=== PATIENT | female | born 1965 | race Caucasian/White ===

== ENCOUNTER 2018-03-04 12:08 | Day surgery (SDC) | payer BC ==
[~2018-03-04 12:08] MED LIST: Buffered Lidocaine 0.9% SYRIN* 5 ML/SYR SYRINGE INTRADERM ONE; Dexamethasone TAB* 4 MG PO ONE; Famotidine IV* 10 MG/ML 2 ML (20 mg) IV ONE
[2018-03-04] MEDS ORDERED: Dexamethasone IV* 4 MG/ML 1 ML (4 MG) ONE (12:23)
[2018-03-04] MEDS ORDERED: Famotidine TAB* 20 MG ONE (12:23)
[2018-03-04] MEDS ORDERED: Ondansetron INJ* 2 MG/ML VIAL ONE (12:41)
[2018-03-04] MEDS ORDERED: KETAMINE HCL* 50 MG/ML 10 ML VIAL ONE ×2 (12:55→13:01)
[2018-03-04] MEDS ORDERED: fentaNYL* 50 MCG/ML 5 ML VIAL (250 MCG VIAL) ONE (12:55)
[2018-03-04] MEDS ORDERED: Ketorolac INJ* 30 MG/ML 1 ML VIAL ONE (12:56)
[2018-03-04] MEDS ORDERED: Lidocaine 2% PF * 5 ML VIAL ONE (12:56)
[2018-03-04] MEDS ORDERED: Propofol* 500 MG/50 ML BTL ONE (12:56)
[2018-03-04] MEDS ORDERED: Midazolam* 1 MG/ML 5 ML VIAL (5 MG) ONE (12:56)
[2018-03-04] MEDS ORDERED: Naloxone* 0.4 MG/ML 1 ML VIAL IV PRN (13:04)
[2018-03-04] MEDS ORDERED: oxyCODONE/Acetamin 5/325 MG* TAB PO PRN (13:04)
[2018-03-04] MEDS ORDERED: HYDROcodone/ACETAMIN 5-325 MG* 1 TAB PO PRN (13:04)
[2018-03-04] MEDS ORDERED: DiMENhydriNATE IV* 50 MG/ML VIAL IV PUSH PRN (13:04)
[2018-03-04] MEDS ORDERED: fentaNYL* 50 MCG/ML 2 ML VIAL (100 MCG VIAL) IV PRN (13:04)
[2018-03-04] MEDS ORDERED: Ondansetron INJ* 2 MG/ML VIAL IV ONE (13:07)
[2018-03-04] MEDS ORDERED: Propofol* 10 MG/ML 20 ML BTL IV PUSH ONE (13:46)
[2018-03-04 14:50] VITALS: BP 146/94
--- NOTE | 2018-03-05 11:10 | PRO ---
CC: Maria Isabel García PA-C GASTROENTEROLOGY PROCEDURE REPORT: DATE OF PROCEDURE: 03/04/18 REFERRING PHYSICIAN: Maria Isabel García PA-C. PROCEDURE PERFORMED: Colonoscopy to cecum and terminal ileum with biopsies. PREOPERATIVE DIAGNOSIS: A 52-year-old female who describes one year of chronic diarrhea. She has co mmenced some dietary changes and has been on hyoscyamine with some improvement in her symptoms. The patient did undergo a normal screening colonoscopy in 2013. The patient has had stool samples perfor [facility] which were negative. POSTOPERATIVE DIAGNOSES: 1. 5 mm polyp x2 of the rectum status post jumbo biopsy resection with complete resection and retrie jorge. 2. Otherwise normal appearing colonic mucosa to the cecum without evidence of colitis or proctitis. Random biopsies obtained of the right colon to rule out microscopic colitis. 3. Normal terminal ileum. 4. Internal hemorrhoids. PROCEDURE MEDICATIONS: Per anesthesia. INSTRUMENT: CF-190 Olympus variable high-definition colonoscope. DESCRIPTION OF PROCEDURE: Informed consent was obtained prior to performing this procedure. The ins trument was introduced into the anus and passed through the rectum under direct visualization. The i nstrument was then advanced up to the cecum. The cecum was confirmed by visualization of the appendi ceal orifice, ileocecal valve and tri-folds of the cecum. The colonoscope was slowly withdrawn. The preparation was good. The ileocecal valve was intubated. The terminal ileum was entered for 20-30 c m and was normal. The mucosa of the cecum, ascending colon, transverse colon, descending colon and s igmoid colon was normal. Random biopsies were obtained of the right colon to rule out microscopic co litis. In the rectum, there were two 5 mm polyps removed via jumbo biopsy resection with complete re section and retrieval. Internal hemorrhoids were visualized in the rectum. Patient tolerated the pro cedure well and there were no complications. RECOMMENDATIONS: I will notify the patient of pathology results in one week. The office will set he r up for a lactulose breath test to rule out small bowel bacterial overgrowth. Depending on the resu lts of rectal polyps, which I suspect are hyperplastic, we will plan on colonoscopy in five or ten ye ars. She will follow up in the office in six weeks. She will continue her dietary changes and may t duncan Imodium as needed. [id number] #: [id number]
== END 2018-03-04 16:00 | disposition home or self-care (01) ==
LOC: OR 12:08
PROVIDERS: ATTEND Internal Medicine
DX: K52.9 Noninfective gastroenteritis and colitis, unspecified (principal); R10.84 Generalized abdominal pain; K62.1 Rectal polyp; K64.8 Other hemorrhoids; R19.4 Change in bowel habit; I10 Essential (primary) hypertension; Z86.010 Personal history of colon polyps; G47.33 Obstructive sleep apnea (adult) (pediatric); F41.8 Other specified anxiety disorders; E66.01 Morbid (severe) obesity due to excess calories
CPT/HCPCS: 88305; A9270-GY; J1100; J1885; J2250; J2405; J2704; J3010